=== PATIENT | male | born 1995 | race Two or more races ===

== ENCOUNTER 2017-05-17 03:36 | Emergency (ER) | payer SELFPAY ==
[2017-05-17 03:48] VITALS: BP 132/91; PULSE 100; RESP 18; TEMP 97.8; O2SAT 100
--- NOTE | 2017-05-17 04:23 | ED PDOC ---
HPI: General Adult Time Seen by Provider: 05/17/17 03:44 Chief Complaint (Nursing): Alcohol Ingestion History Per: Patient Additional Complaint(s): Pt. brought in by EMS for public intoxication. Admits to drinking alcohol. States "I drank enough." Offers no complaints at this time. Past Medical History Reviewed: Historical Data, Nursing Documentation, Vital Signs Vital Signs: Last Vital Signs Temp 97.8 F 05/17/17 03:45 Pulse 100 H 05/17/17 03:45 Resp 18 05/17/17 03:45 BP 132/91 H 05/17/17 03:45 Pulse Ox 100 05/17/17 04:26 - Family History Family History: States: No Known Family Hx - Allergies Allergies/Adverse Reactions: Allergies Allergy/AdvReac Type Severity Reaction Status Date / Time No Known Allergies Allergy Verified 05/17/17 03:44 Review of Systems ROS Statement: Except As Marked, All Systems Reviewed And Found Negative Physical Exam - Reviewed Nursing Documentation Reviewed: Yes Vital Signs Reviewed: Yes - Physical Exam Appears: Positive for: Well, Non-toxic, No Acute Distress Head Exam: Positive for: ATRAUMATIC, NORMAL INSPECTION, NORMOCEPHALIC Skin: Positive for: Normal Color, Warm. Negative for: Rash Eye Exam: Positive for: EOMI, Normal appearance, PERRL ENT: Positive for: Normal ENT Inspection Neck: Positive for: Normal, Painless ROM Cardiovascular/Chest: Positive for: Regular Rate, Rhythm Respiratory: Positive for: CNT, Normal Breath Sounds Gastrointestinal/Abdominal: Positive for: Normal Exam, Soft. Negative for: Tenderness Back: Positive for: Normal Inspection. Negative for: L CVA Tenderness, R CVA Tenderness, Vertebral Tenderness (including cervical spine) Extremity: Positive for: Normal ROM Neurologic/Psych: Positive for: Alert, Oriented. Negative for: Aphasia, Facial Droop - ECG O2 Sat by Pulse Oximetry: 100 - Progress ED Course And Treament: Labs ordered. 0600 Pt. with steady unassisted gait. No slurred speech. States he will take an Uber home. Disposition - Clinical Impression Clinical Impression: Alcohol intoxication - Patient ED Disposition Is Patient to be Admitted: No - Disposition Disposition: Routine/Home Disposition Time: 05:54 Condition: STABLE Instructions: Alcohol Intoxication (ED) Forms: [employer] ([place])
== END 2017-05-17 06:08 | disposition home or self-care (01) ==
LOC: H.ER 03:36
DX: F10.129 Alcohol abuse with intoxication, unspecified (principal)
CPT/HCPCS: 82948; 99282; G0480